=== PATIENT | male | born 1970 | race Caucasian/White ===

== ENCOUNTER 2019-07-15 13:06 | Emergency (ER) | payer OTHER ==
[~2019-07-15] VITALS: Ht 172.7 cm; Wt 73.9 kg
[2019-07-15] MEDS ORDERED: FLONASE 0.05%50 MCG NARES (13:13)
[2019-07-15] MEDS ORDERED: AUGMENTIN 875-1 EACH PO (13:13)
[2019-07-15 13:30] LABS: ABSOLUTE BASOPHILS 0.1 thou/uL (0.0-0.2); ABSOLUTE LYMPHOCYTES 1.2 thou/uL (0.8-5.3); ABSOLUTE MONOCYTES 0.4 thou/uL (0.0-1.2); ABSOLUTE NEUTROPHILS 5.7 thou/uL (1.6-8.1); BASOPHILS 1.1 %; EOSINOPHILS 0.6 %; HEMOGLOBIN 16.3 gm/dL (14.0-18.0); LYMPHOCYTES 16.6 %; MCH 29.4 pg (26.0-34.0); MCHC 34.7 g/dL (28.0-37.0); MCV 84.9 fL (80.0-100.0); MONOCYTES 5.1 %; MPV 7.7 fl. (7.2-11.1); NUCLEATED RBCS 0 /100WBC; PLATELET COUNT* 385 thou/uL (150-400); POLYS 76.6 %; RBC 5.54 mil/uL (4.50-6.00); RDW-CV 13.7 % (10.5-14.5); WBC 7.4 thou/uL (4.0-11.0)
[2019-07-15 13:36] LABS: APTT 24.6 Seconds (25.0-31.3); PROTIME 10.7 Seconds (9.20-11.50)
[2019-07-15 13:37] LABS: CALCIUM 8.6 mg/dL (8.5-10.1); CREATININE 1.1 mg/dL (0.6-1.3)
[2019-07-15 13:47] LABS: ALBUMIN 4.2 g/dL (3.4-5.0); MAGNESIUM 2.3 mg/dL (1.8-2.4); TOTAL BILIRUBIN 0.4 mg/dL (<0.1-1.0); TOTAL PROTEIN 8.1 g/dL (6.4-8.2)
--- NOTE | 2019-07-15 15:20 | EKG ---
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
[2019-07-15] MEDS ORDERED: PROTONIX40 M1 PO (16:07)
[2019-07-15 16:25] VITALS: BP 127/72
--- NOTE | 2019-07-16 10:05 | EKG ---
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
== END 2019-07-15 16:30 | disposition home or self-care (01) ==
LOC: M.ERS 13:06
PROVIDERS: Emergency Medicine Emergency Medical Services
DX: R07.89 Other chest pain (principal); R06.00 Dyspnea, unspecified

== ENCOUNTER 2019-07-18 19:24 | Observation (INO) | payer OTHER ==
[~2019-07-18] VITALS: Ht 175.3 cm; Wt 73.9 kg
[~2019-07-18 19:24] MED LIST: AUGMENTIN 875-1 EACH PO; FLONASE 0.05%50 MCG NARES; PROTONIX40 M1 PO
[2019-07-18 19:29] VITALS: BP 139/75
[2019-07-18 20:15] LABS: ABSOLUTE BASOPHILS 0.1 thou/uL (0.0-0.2); ABSOLUTE MONOCYTES 0.5 thou/uL (0.0-1.2); ABSOLUTE NEUTROPHILS 5.8 thou/uL (1.6-8.1); BASOPHILS 0.8 %; EOSINOPHILS 0.4 %; HEMATOCRIT 40.4 % (42.0-52.0); HEMOGLOBIN 14.1 gm/dL (14.0-18.0); LYMPHOCYTES 23.8 %; MCH 29.5 pg (26.0-34.0); MCV 84.3 fL (80.0-100.0); MONOCYTES 5.5 %; MPV 7.5 fl. (7.2-11.1); NUCLEATED RBCS 0 /100WBC; PLATELET COUNT* 345 thou/uL (150-400); POLYS 69.5 %; RBC 4.79 mil/uL (4.50-6.00); RDW-CV 13.7 % (10.5-14.5); WBC 8.4 thou/uL (4.0-11.0)
[2019-07-18 20:29] LABS: INR 1.1; PROTIME 11.1 Seconds (9.20-11.50)
[2019-07-18 20:37] LABS: CALCIUM 7.8 mg/dL (8.5-10.1); POTASSIUM 3.6 mmol/L (3.5-5.1)
[2019-07-18 20:50] LABS: ALBUMIN 3.6 g/dL (3.4-5.0); TOTAL BILIRUBIN 0.2 mg/dL (<0.1-1.0); TOTAL PROTEIN 6.6 g/dL (6.4-8.2)
--- NOTE | 2019-07-18 23:15 | NUR ---
RECEIVED REPORT FROM ER AND ADMITTED TO ROOM. NO ACUTE DISTRESS. 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 SEE ADMISSION HX AND ASSESSMENT. WILL CONT TO MONITOR AND ASSIST NEEDED.
[2019-07-18 23:21] VITALS: BP 121/59
[2019-07-18 23:30] VITALS: BP 121/59
[2019-07-19 04:12] VITALS: BP 94/56
[2019-07-19 04:19] LABS: CHOLESTEROL 186 mg/dL (<200); HDL CHOLESTEROL 44 mg/dL (>40); LDL CHOLESTEROL 133 mg/dL (<100); TC:HDL 4.2 Ratio (Not establshd); TRIGLYCERIDE 49 mg/dL (<150); VLDL 10 mg/dL (<40)
[2019-07-19 04:20] LABS: SERUM ASSESSMENT CLEAR
--- NOTE | 2019-07-19 05:59 | NUR ---
AWAKE MOST OF NIGHT. DENIES FURTHER CHEST PAIN. REMAINS NPO FOR POSS TEST THIS AM. TELEMETRY SHOWING SB.
[2019-07-19 07:51] VITALS: BP 109/54
[2019-07-19 09:47] VITALS: BP 109/54
--- NOTE | 2019-07-19 11:05 | EKG ---
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 07/19/19 1103 27 27 Bimal Bain MD, FACC /EPI
[2019-07-19 12:10] VITALS: BP 110/56
--- NOTE | 2019-07-19 16:09 | EXE ---
[place] [address] STRESS ECHOCARDIOGRAM Name: MEHNAZ WILD Room: [address] [place]#: [id number] Admission: 07/18/19 Attend Phys: Ilya Vides, Discharge: Date of : 72 Date of Service: 07/19/19 1608 Report #: [id number] THIS REPORT FOR: cc: Cary Yu MD,Bimal Ortega MD, MD [facility] ~ APPROVED REPORT Study performed: 07/19/2019 14:35:32 Exam: Stress Echocardiogram Indication: Chest pain Patient Location: In-Patient Stress Nurse: Norma Sparks RN Supervising Physician: Bimal Bain MD Ht: 5 ft 9 in HR: 48 bpm BP: 114/75 mmHg Medical History Cardiac Risk Factors: Hyperlipidemia, Tobacco History (Current/Recent) Procedure The patient underwent an Exercise Stress Test using the Slade Protocol. Blood pressure, heart rate, and EKG were monitored. An Echocardiogram was performed by emissions technician in four stages in quad fashion. At peak stress, four selected images were obtained and placed side by side with resting images for comparison. Stress Test Details Stress Test: Exercise stress testing was performed using a Slade protocol. HR Resting HR: 57 bpm Max Heart Rate (APMHR): 172 bpm Max HR Achieved: 160 bpm Target HR (85% APMHR): 146 bpm % of APMHR: 93 Recovery HR: 66 bpm HR response to stress: Normal HR response to stress BP Resting BP: 114/75 mmHg Max BP: 139/83 mmHg Recovery BP: 134/84 [place] [address] STRESS ECHOCARDIOGRAM Name: MEHNAZ WILD Room: [address] [place]#: [id number] Admission: 07/18/19 Attend Phys: Ilya Vides, Discharge: Date of : 72 Date of Service: 07/19/19 1608 Report #: [id number] BP response to stress: Normal blood pressure response to stress. ECG Resting ECG: normal EKG Stress ECG: no ischemic st-t changes Clinical Reason for Termination: Maximal effort Exercise duration: 8 min 58 sec Highest Stage Achieved: Stage 3: 3.4 mph at 14% grade. Exercise capacity: 10.16 METs Overall Exercise Capacity for Age: Normal Functional Aerobic Impairment 93% Pre-Stress Echo The resting Echocardiogram showed normal left ventricular contractility with an estimated Ejection Fraction of about 55-60%. Normal wall motion in all segments on baseline images. Post-Stress Echo The stress Echocardiogram showed normal left ventricular contractility with an estimated Ejection Fraction of about >70%. Normal augmentation of wall motion in all segments on post stress images. Conclusion Clinical Response: Non-ischemic Exercise Capacity: Average Stress ECG Response: Non-ischemic Stress Echo Images: Non-ischemic Other Information Study Quality: Good <ELECTRONICALLY SIGNED> By: Bimal Bain MD, [facility] 07/19/19 1608 1608 1608 Bimal Bain MD, FAC /INF
--- NOTE | 2019-07-19 16:21 | NUR ---
PT DISCHARGED AT 1610 TO HOME WITH NURSING STAFF AND . IV OUT. PT STABLE. STRESS TEST CAME BACK NORMAL. PERSONAL BELONGINGS SENT WITH PT. NO PRESCRIPTIONS.
== END 2019-07-19 16:10 | disposition home or self-care (01) ==
LOC: M.ERS 19:24 → M.2W 22:45 → M.TBA-ER 22:45 → M.2W 23:14
PROVIDERS: Personal Emergency Response Attendant; ADMIT Internal Medicine
DX: R07.89 Other chest pain (principal); J40 Bronchitis, not specified as acute or chronic; E78.5 Hyperlipidemia, unspecified; F17.200 Nicotine dependence, unspecified, uncomplicated; Z82.49 Family history of ischemic heart disease and other diseases of the circulatory system

== ENCOUNTER 2020-08-13 20:37 | Emergency (ER) | payer OTHER ==
[~2020-08-13] VITALS: Ht 172.7 cm; Wt 76.2 kg
[2020-08-13 21:18] LABS: HEMATOCRIT 40.1 % (42.0-52.0); HEMOGLOBIN 13.5 gm/dL (14.0-18.0); MCH 28.7 pg (26.0-34.0); MCHC 33.6 g/dL (28.0-37.0); MCV 85.4 fL (80.0-100.0); MPV 7.3 fl. (7.2-11.1); RBC 4.7 mil/uL (4.50-6.00); RDW-CV 13.9 % (10.5-14.5); WBC 8.1 thou/uL (4.0-11.0)
[2020-08-13 21:24] LABS: CALCIUM 8.9 mg/dL (8.5-10.1); CREATININE 0.9 mg/dL (0.6-1.3); POTASSIUM 3.4 mmol/L (3.5-5.1)
[2020-08-13 21:28] LABS: ALBUMIN 3.6 g/dL (3.4-5.0); TOTAL BILIRUBIN 0.3 mg/dL (<0.1-1.0); TOTAL PROTEIN 6.6 g/dL (6.4-8.2)
[2020-08-13 21:51] LABS: URINE BILIRUBIN NEGATIVE (Negative); URINE BLOOD NEGATIVE (Negative); URINE CLARITY CLEAR; URINE COLOR YELLOW; URINE GLUCOSE-RANDOM NEGATIVE (Negative); URINE KETONES NEGATIVE (Negative); URINE LEUKOCYTES-REFLEX NEGATIVE (Negative); URINE NITRITE-REFLEX NEGATIVE (Negative); URINE PROTEIN NEGATIVE (Negative); URINE SPECIFIC GRAVITY 1.025 (1.005-1.030); URINE UROBILINOGEN 0.2 E.U./dl (0.2-1.0)
[2020-08-14] MEDS ORDERED: NORFLEX100 MG PO (00:39)
[2020-08-14] MEDS ORDERED: TORADOL 10 MG T10 MG PO (00:39)
[2020-08-14 00:54] VITALS: BP 118/58
== END 2020-08-14 00:54 | disposition home or self-care (01) ==
LOC: M.ERS 20:37
PROVIDERS: Personal Emergency Response Attendant
DX: R10.84 Generalized abdominal pain (principal)